=== PATIENT | female | born 2000 | race Caucasian/White ===

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

== ENCOUNTER 2023-06-18 13:35 | Emergency (ER) | payer MEDICAID, SELFPAY ==
[2023-06-18 13:42] VITALS: BP 133/80; PULSE 127; RESP 20; TEMP 37.6; O2SAT 100
--- NOTE | 2023-06-18 16:18 | W.ED.GENAD ---
Discharge Plan Disposition Patient Disposition: Home Discharge Details Clinical Impression: Second degree sunburn Primary Care Provider: Chavez Alvarado ED Provider: Jewel Slade Home Meds and New Rx's Prescriptions: New ibuprofen [IBU] 600 mg tablet 600 mg PO QID PRN (Reason: pain) Qty: 20 0RF Continued Nexplanon 68 mg implant 1 implant SBD ONCE melatonin 3 mg capsule 3 mg PO HS PRN (Reason: sleep) Qty: 60 1RF Rx Instructions: take one or 2 capsules once a day at bedtime fluoxetine 40 mg capsule 80 mg PO DAILY Qty: 60 3RF Rx Instructions: take 2 capsules once day Discharge Instructions Instructions: Sunburn (ED), Second-Degree Burn (ED) Additional Instructions: Please continue to use [id number] aloe and it is recommended if you can find some with lidocaine to use on areas of burn as this will also help with pain and discomfort. Please use as directed on packaging. Stay well-hydrated and continue to use NSAIDs Return to the emergency department for any new or significant worsening of symptoms otherwise follow-up with primary care provider for reassessment Referrals: Chavez Alvarado [Primary Care Provider] - Discharge Data Discharge Date/Time-TO BE ENTERED AT DEPARTURE: 06/18/23 19:55 Medical Decision Making Patient presenting to the emergency department with mother for chief complaint of sunburn. [place] the [place] 5 [place] and got a sunburn. The next day they noticed some slight blistering but blistering continued to worsen over the next 24 hours. Now patient is presenting with significant pain and discomfort malaise and some chills. Denies any fever or other systemic symptoms. Physical exam shows tachycardia and obvious first and second-degree sunburns to the anterior surface with clear bathing suit lines were no erythema or blistering is noted. 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 Given patient's tachycardia and not feeling well I am concerned for some possible dehydration given the surface area involved. We will give a liter of fluids and Toradol and reassess patient. Patient given 2 L of fluids and Toradol and states significant improvement of symptoms. Of note patient still was fairly tachycardic but both patient and mother state that this is very normal for patient as she has significant anxiety and again the selective mutism. After discussion of diagnosis and plan of care patient has no further needs, questions, or concerns and states clear understanding to return to the emergency department for any worsening symptoms. This documentation was generated using [employer] dictation system, please disregard any oddities of phrase or misspellings. HPI General Mode of arrival: ambulatory. Date/Time Provider Initiated Documentation: 06/18/23 15:32. Limitations to Documentation: no limitations. Information obtained by: family and RN notes reviewed. History of Present Illness 22 year old F presents to the emergency department with the chief complaint of Sunburn, described as moderate and severe, Quality is described as burning, and is localized to the chest, abdomen and upper extremity. Patient started experiencing this day(s) (4) and it has been constant. No relieving factors improve symptom(s), Patient notes malaise. Patient did receive the following treatments prior to arrival, other ([id number] aloe) Related Data Home Medications Medication Instructions Recorded Confirmed etonogestrel 68 mg subdermal 1 implant subdermal ONCE 08/21/19 06/17/21 implant (Nexplanon) melatonin 3 mg capsule 3 mg PO HS PRN sleep #60 caps 09/03/19 06/17/21 fluoxetine 40 mg capsule 80 mg PO DAILY #60 caps 02/02/22 ibuprofen 600 mg tablet (IBU) 600 mg PO QID PRN pain #20 tabs 06/18/23 Previous Rx's Medication Instructions Recorded melatonin 3 mg capsule 3 mg PO HS PRN sleep #60 caps 09/03/19 fluoxetine 40 mg capsule 80 mg PO DAILY #60 caps 02/02/22 ibuprofen 600 mg tablet (IBU) 600 mg PO QID PRN pain #20 tabs 06/18/23 Allergies Allergy/AdvReac Type Severity Reaction Status Date / Time No Known Allergies Allergy Verified 06/17/21 10:51 General Stated Complaint: Burn MARIZOL: 3 Review of Systems Constitutional Constitutional: Reports chills, Denies fever(s) and Reports malaise Cardiovascular Cardiovascular: Denies chest pain and Denies dyspnea Respiratory Respiratory: Denies dyspnea Integumentary/Breasts Skin/Breast: Reports as per HPI, Reports erythema, Reports skin pain and Denies skin swelling PFSH All Active Problems (Updated 06/18/23 @ 19:33 by Jewel Slade NP) Second degree sunburn (Acute) Anxiety (Chronic) Contraception management (Chronic ~04/24/19) depo-provera for heavy menses Selective mutism (Chronic) Viral warts (Acute 06/11/13) Menorrhagia (Acute 10/03/13) 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) BMI (body mass index), pediatric, 5% to less than 85% for age (Acute 04/20/18) Family History Mother Healthy adult Father Mental disorder anxiety/depression Other Diabetes MGGM Heart disease PGF Myocardial infarction PGF Other Stroke Social History Smoking/Tobacco Use Status: Never Second Hand Exposure: No Smoking risk assessment performed?: Yes Alcohol Intake: never Drug use: Never Substance use type: does not use Sexually active: No Do you feel safe at home: Yes Do you feel safe in your relationship?: Yes Female Reproductive History Menstrual Age of Menarche: 12 control method: none History History 0 Para Hx # Term Pregnancies Multiple births Hx # Pregnancies Ectopic pregnancies AB induced Hx Number of Living Children AB spontaneous Exam Const General: cooperative, no acute distress and not ill appearing Orientation: alert and awake HENMT Mouth: moist mucous membranes Resp Effort & Inspection: normal respiratory effort, able to speak in complete sentences and no respiratory distress Auscultation: clear to auscultation bilaterally Cardio Rate: tachycardic Rhythm: regular rhythm Skin General skin exam: other (1st/2nd-degree sunburn to anterior surface of trunk upper/lower extremities) Neuro General: patient alert, patient awake, moves all extremities and no focal motor deficits Course Vital Signs Vital signs: Vital Signs Temperature 37.6 C H 06/18/23 13:42 Pulse 127 H 06/18/23 13:42 Respiratory Rate 20 06/18/23 13:42 Blood Pressure 133/80 06/18/23 13:42 Pulse Oximetry 100 06/18/23 13:42 Temperature 37.6 C H 06/18/23 13:42 Temperature Source Temporal Artery Scan 06/18/23 13:42 Pulse 127 H 06/18/23 13:42 Respiratory Rate 20 06/18/23 13:42 Respiratory Effort Normal, Non-Labored 06/18/23 13:48 Blood Pressure 133/80 06/18/23 13:42 Blood Pressure Position Sitting 06/18/23 13:42 Pulse Oximetry 100 06/18/23 13:42 Oxygen Delivery Method Room Air 06/18/23 13:42 Oxygen Flow Rate 0 06/18/23 13:42
[2023-06-18] MEDS: Normal Saline 1,000 ML 1000 ML IV ×2 (16:53→18:38)
[2023-06-18] MEDS: Ketorolac 30 MG/ML VIAL IVP (16:53)
[2023-06-18 18:30] VITALS: BP 117/68; PULSE 122; RESP 16; O2SAT 98
[2023-06-18 19:51] VITALS: BP 113/69; PULSE 110; RESP 14; O2SAT 99
== END 2023-06-18 19:55 | disposition home or self-care (01) ==
PROVIDERS: Emergency Provider Nurse Practitioner Family; PCP Physician Assistant
DX: L55.1 Sunburn of second degree (principal)
CPT/HCPCS: 96361; 96374; 99282; 99283; J1885

== ENCOUNTER 2023-06-22 20:56 | Outpatient (REF) | payer MEDICAID, SELFPAY | END 2023-06-22 20:57 | disposition home or self-care (01) | LOC: LBN 20:56 | PROVIDERS: PCP Physician Assistant; Visit Provider Nurse Practitioner Family | DX: L02.414 Cutaneous abscess of left upper limb (principal) | CPT/HCPCS: 87077; 87070; 87205 ==

== ENCOUNTER 2024-04-18 12:46 | Outpatient (REF) | payer MEDICAID, SELFPAY ==
--- NOTE | 2024-04-18 11:40 | PAPFT_PTH ---
PATIENT: Rosa Barber LOC: NCN #:[id number] AGE/SX: 23/F ROOM: RE04/18/[address]: RUKHSANA RODRIGEZ : 2000 BED: DIS: 04/18/2024 SPEC #: [id number] RECD: 04/18/24 16:26 STATUS: APOLINAR REQ #: [id number] EMMANUEL: 04/18/24 11:[address]: Rukhsana Rodrigez DEPT: [facility] Cytology RECD BY: Tila Hernandez ENTERED: 04/18/24 16:27 SP TYPE: PAPFT OTHR DR: Chavez Alvarado Tissues: 1 - CX/ENDOCX FOR PAP SMEARS Procedures: PAP THIN PREP/[facility] Screening Comments: [id number]
[2024-04-18 15:55] LABS: HCT 35.6 % (36.0-46.0); HGB 10.4 g/dL (11.2-15.7); MCHC 29.2 % (32.0-36.0); MPV 10.2 fL (8.0-11.0); Platelet Count 350 10^3/uL (130-400); RBC 4.96 10^6/uL (3.93-5.22); RDW 17.8 % (11.7-14.6); RDW-SD 45.6 fL; WBC 6.81 10^3/uL (4.4-10.8)
[2024-04-18 16:51] LABS: MCV 72 fL (80-95)
[2024-04-18 16:53] LABS: ALT 19 U/L (14-59); AST 15 U/L (15-37); Albumin 3.7 g/dL (3.4-5.0); Alkaline Phosphatase 90 U/L (46-116); Anion Gap 8.7 mmol/L (3-11); BUN 7 mg/dL (7-18); Bilirubin, Total 0.2 mg/dL (0.2-1.0); CO2 25.3 mmol/L (21.0-32.0); CREATININE 0.7 mg/dL (0.55-1.02); Calcium 8.9 mg/dL (8.5-10.1); Chloride 105 mmol/L (98-107); Estimated GFR 126.11 (mL/min/1.73m2); Glucose 101 mg/dL (74-106); Potassium 3.7 mmol/L (3.5-5.1); Sodium 139 mmol/L (136-145); TSH (W/Ref FT4) 1.11 uIU/mL (0.36-3.74); Total Protein 7.6 g/dL (6.4-8.2)
== END 2024-04-18 12:47 | disposition home or self-care (01) ==
LOC: NCHCN 12:46
PROVIDERS: PCP Physician Assistant; Visit Provider Nurse Practitioner Family
DX: R00.2 Palpitations (principal); B37.31 Acute candidiasis of vulva and vagina; Z12.4 Encounter for screening for malignant neoplasm of cervix; Z01.419 Encounter for gynecological examination (general) (routine) without abnormal findings
CPT/HCPCS: 80053; 85027; 88142; 84443

== ENCOUNTER 2024-04-25 08:52 | Outpatient (RCR) | payer MEDICAID, SELFPAY ==
--- NOTE | 2024-04-25 09:30 | HOLTER_ITS ---
APPROVED REPORT Conclusion This is a 24-hour Holter monitor Rhythm throughout was sinus with an average heart rate of 109. Minimum was 86, maximum 141 There were no ventricular dysrhythmias There was no atrial fibrillation, no SVT, no high-grade AV block, no pauses greater than 3 seconds Patient symptoms were reported which correlated to sinus tachycardia
== END 2024-04-26 23:59 | disposition home or self-care (01) ==
LOC: CARDOPNVT 08:52
PROVIDERS: PCP Physician Assistant; Visit Provider Internal Medicine Cardiovascular Disease
DX: R00.2 Palpitations (principal)
CPT/HCPCS: 93225

== ENCOUNTER 2024-05-15 16:30 | Outpatient (RCR) | payer MEDICAID, SELFPAY | END 2024-05-26 23:59 | disposition home or self-care (01) | LOC: CARDOPNVT 16:30 | PROVIDERS: PCP Physician Assistant; Visit Provider Nurse Practitioner Family | DX: R00.2 Palpitations (principal); R00.0 Tachycardia, unspecified | CPT/HCPCS: 93226 ==

== ENCOUNTER 2024-12-04 13:57 | Outpatient (REF) | payer MEDICAID, SELFPAY ==
[2024-12-04 19:03] LABS: Abs Immature Grans 0.02 10^3/uL (0.0-0.06); Absolute Basophil Count 0.03 10^3/uL (0.0-0.2); Absolute Eosinophil Count 0.13 10^3/uL (0.0-0.7); Absolute Lymphocyte Count 2.34 10^3/uL (1.2-3.4); Absolute Monocyte Count 0.32 10^3/uL (0.1-0.8); Absolute Neutrophil Count 4.24 10^3/uL (1.2-6.7); Basophils % 0.4 %; Eosinophils % 1.8 %; HGB 10.7 g/dL (11.2-15.7); Immature Grans % 0.3 %; Lymphocytes % 33.1 %; MCHC 28.9 % (32.0-36.0); MCV 73 fL (80-95); MPV 10.4 fL (8.0-11.0); Monocytes % 4.5 %; Neutrophils % 59.9 %; Platelet Count 259 10^3/uL (130-400); WBC 7.08 10^3/uL (4.4-10.8)
[2024-12-04 19:26] LABS: Microcytosis 1+
[2024-12-04 19:53] LABS: Ferritin 24 ng/mL (8-252); Folate 16.4 ng/mL (8.6-20.0); Vitamin B12 1294 pg/mL (193-986)
[2024-12-04 21:01] LABS: Iron 14 ug/dL (50-170); Total Iron Binding Capacity 376 ug/dL (250-450); Transferrin Sat 4 % (15-50)
== END 2024-12-04 13:58 | disposition home or self-care (01) ==
LOC: NCHCN 13:57
PROVIDERS: PCP Physician Assistant; Visit Provider Nurse Practitioner Family
DX: D64.9 Anemia, unspecified (principal)
CPT/HCPCS: 82607; 82728; 82746; 83540; 83550; 85025